=== PATIENT | male | born 1960 | race Caucasian/White ===

== ENCOUNTER 2022-12-16 10:47 | Day surgery (SDC) | payer BC ==
[~2022-12-16 10:47] MED LIST: Midazolam 1 MG/ML 2 ML SDV ONE; Propofol 200 MG/20 ML SDV ONE
[2022-12-16] MEDS ORDERED: Lactated Ringers 1,000 ML IV SCH (12:00)
[2022-12-16] MEDS ORDERED: Sodium Chloride 0.9% 10 ML Syringe FLUSH PRN (12:00)
== END 2022-12-16 13:00 | disposition home or self-care (01) ==
LOC: LL.SDS 10:47
PROVIDERS: ATTEND Surgery
DX: Z12.11 Encounter for screening for malignant neoplasm of colon (principal); K21.9 Gastro-esophageal reflux disease without esophagitis
CPT/HCPCS: 45378; J2250; J2704; J7120; 00812